=== PATIENT | female | born 1940 | race Caucasian/White ===

== ENCOUNTER → 2018-05-16 08:26 | Outpatient (CLI) | payer MEDICARE, OTHER, SELFPAY ==
--- NOTE | 2018-05-16 | DI.US.S_ITS ---
PROCEDURE: US PELVIC COMPLETE INDICATIONS: ABDOMINAL PAIN, RLQ PAIN TECHNIQUE: Real-time scanning was performed of the pelvic organs, with image documentation. Additional endovaginal scanning was necessary due to incomplete visualization of the adnexal and endometrial structures by transabdominal scanning. COMPARISON: [facility], US, PELVIC COMPLETE, 04/26/2016, 16:57. FINDINGS: Transabdominal scanning: Limited scanning through the kidneys shows mild hydronephrosis. No pathologic free abdominal or pelvic fluid. Endovaginal scanning: Uterus: Uterus is normal in size at 6.1 x 2.7 x 3.7 cm. The endometrium measures 4.0 mm in combined thickness. Mild microcystic changes of the endometrial complex. Ovaries: Calcification nausea right ovary otherwise ovaries are normal measuring 1.9 x 1.4 x 1.0 cm on the right and 1.6 x 0.7 x 0.8 cm on the left. Appendix is not visualized. IMPRESSION: 1. Endometrial complex within normal limits in thickness but does demonstrate associated microcystic changes. Recommend gynecologic consultation and followup ultrasound in 3 months to assess for temporal stability. 2. Small right ovarian calcification otherwise the ovaries are normal. 3. Mild bilateral hydronephrosis present of unclear etiology. Recommend clinical correlation and if indicated CT IVP could be performed. Dictated by: Brandon RUIZ Interpreted: Juan Manuel Anthony MD on 05/16/2018 at 11:03 Approved by: Juan Manuel Anthony M.D. on 05/16/2018 at 14:56
== END ==
PROVIDERS: PCP Physician Assistant Medical; Visit Provider Physician Assistant Medical
DX: R10.31 Right lower quadrant pain (principal); N13.30 Unspecified hydronephrosis; N83.8 Other noninflammatory disorders of ovary, fallopian tube and broad ligament
CPT/HCPCS: 76830; 76856

== ENCOUNTER 2018-06-12 08:15 | Day surgery (SDC) | payer MEDICARE, OTHER, SELFPAY ==
--- NOTE | 2018-06-07 08:27 | PM.PREOP ---
Pre-operative Note Interval Note History & Physical reviewed/Exam performed by Physician: Yes Changes to H&P: No
--- NOTE | 2018-06-11 14:46 | PM.OP.1 ---
Operative Date/Time/Diagnoses Date of procedure: 06/12/18 Time of procedure: 09:45 Procedure & Clinicians Procedure: Preoperative diagnoses: 1. 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 Needs capsular dye and Malyguin ring due to poor dilation and dense cataract. 2. Chronic Clostridium difficele treated with oral Vancomycin for 2 months. 3. Uterine cyst. 4. Cardiomyopathy with valvular insufficiency. Postoperative diagnoses: 1. Complex cataract removed by phacoemulsification with use of Maluguin ring and capsular dye with placement of posterior chamber intraocular lens. Procedure: Complex phacoemulsification with posterior chamber intraocular lens implant. Malyuguin ring and Visudyne used. Surgeon: Coleen Verduzco MD Complications: None Specimen: None Implant: [id number]+20.5 Blood loss: None Anesthesia: Retrobulbar with monitored standby Description of procedure: Patient presents with a complaint of decreased vision due to cataract which is affecting activities of daily living. The patient wants surgery to improve vision. She has had a diagnosis of Clostridium difficile treated for 2 months with tapering doses of vancomycin stable for surgery. She was started on daily vancomycin 1 day before discontinuing daily for the 1st week after surgery and then every other day as directed by her primary care physician. She has no active symptoms The patient was taken to the operating room and given IV sedation. A retrobulbar block consisting of 6 cc of 2% xylocaine without epinephrine mixed half and half with 0.5% Marcaine with 1 cc of hyaluronidase added is placed between the medial and lateral 1/3 of the inferior orbital rim. Lid akinesia is obtain with 1% xylocaine with epinephrine infiltrated along the lid margin. The eye is manually massaged for 30 sec, prepped using Betadine solution, and draped in the usual sterile fashion. Temporal approach was made, a 1 mm side-port incision was made 90? from the proposed clear corneal incision position. Phenylephrine 1.5% mixed with 1% xylocaine 0.2 cc was placed into the anterior chamber. An air bubble followed by Visudyne was placed due to dense cataract and no red reflex to improve visibility. Viscoat followed by Healon was then placed. A 2.6 mm clear incision with a 2.6 mm blade was placed. The pupil was small having poorly dilated was inadequate to perform a capsulorrhexis. Therefore a 7.0 mm Malyguin ring was placed into the anterior chamber after inspection. It was then sequentially placed in all 4 quadrants of the iris allowing for an adequate view. A 360 degree capsulorrhexis style capsulotomy was then performed with a cystitome needle on a [employer]. Hydrodelineation and hydrodissection were performed. The phacoemulsification unit is introduced, and sculpting notice used to groove the central lens. It is then removed in chopping mode. Epi nucleus is removed with epinuclear mode and irrigation aspiration was used to remove the peripheral cortex. The posterior capsule is polished. The intraocular lens is selected, inspected, power confirmed, and placed in the posterior chamber. The pupil was constricted with Miostat.. The wound was stromally hydrated and tested for leaks, there was none and it was left sutureless. Vigamox 0.1 cc was placed into the anterior chamber. Kenalog 0.2 cc was placed in the superior subconjunctival space. A drop of antibiotic and was placed and the eye was patched and shielded. The patient was stable and returned to the recovery room in excellent condition. Dictated by: Coleen Verduzco MD Copy to: [facility] Same procedure as scheduled: Yes
[2018-06-12 09:04] VITALS: BMI 22.4
[2018-06-12] MEDS: PROPARACAINE 0.5% OPHTH SOL 2 DROPS EYE-OP (09:10)
[2018-06-12 09:21] VITALS: BP 171/66; PULSE 66; RESP 15; TEMP 36.3; O2SAT 100
[2018-06-12] MEDS: CATARACT EYE COMPOUND (10 DROPS/SYRINGE) 3 DROPS EYE-OP (09:31)
--- NOTE | 2018-06-12 09:39 | PM.PREOP ---
Pre-operative Note Interval Note History & Physical reviewed/Exam performed by Physician: Yes Changes to H&P: No
[2018-06-12] MEDS: CHONDROIDTIN/SOD HYALURONATE 1.05 ML SYRINGE INTRAOCULA (10:03)
[2018-06-12] MEDS: BALANCED SALT IRRIG SOLN NO.2 15 ML IRR (10:03)
[2018-06-12] MEDS: HYALURONATE SODIUM 10 MG/ML SYRINGE INJ (10:04)
[2018-06-12] MEDS: ERYTHROMYCIN OPHTH 1 GM OINT 1 APPLIC EYE-RIGHT (10:04)
[2018-06-12] MEDS: LIDOCAINE 1% W/EPI INJ 20 ML INJ (10:05)
[2018-06-12] MEDS: MOXIFLOXACIN OPHTH DROPS 3 ML BOTTLE 2 DROPS INJ (10:05)
[2018-06-12] MEDS: PHENYLEPHRINE/LIDOCAINE VIAL (OR) 0.2 ML EYE-OP (10:06)
[2018-06-12] MEDS: OFLOXACIN 0.3% OPHTH 5 ML 2 DROPS EYE-RIGHT ×2 (10:06→10:07)
[2018-06-12] MEDS: TRIAMCINOLONE 50 MG/5 ML VIAL INJ (10:07)
[2018-06-12] MEDS: TRYPAN BLUE 0.5 ML SYRINGE INJ (10:07)
[2018-06-12] MEDS: BALANCED SALT IRRIG SOLN NO.2 500 ML, EPINEPHrine 1 MG IRR (10:08)
[2018-06-12] MEDS: LIDOCAINE 2% 4 ML, BUPIVACAINE 0.5% (PF) 4 ML, HYALURONIDASE 150 UNIT INJ (10:09)
[2018-06-12 10:40] VITALS: BP 129/57; PULSE 58; RESP 20; TEMP 36.1; O2SAT 100
== END 2018-06-12 10:55 | disposition home or self-care (01) ==
LOC: OR 08:18
PROVIDERS: PCP Physician Assistant Medical; Visit Provider Ophthalmology
PROC: (CPT 66982; principal; 2018-06-12 09:45)
DX: H25.11 Age-related nuclear cataract, right eye (principal); I10 Essential (primary) hypertension; I42.9 Cardiomyopathy, unspecified
CPT/HCPCS: 66982; J0171; J2250; J2704; J3010; J3301; J3470

== ENCOUNTER 2018-07-03 09:24 | Day surgery (SDC) | payer MEDICARE, OTHER, SELFPAY ==
--- NOTE | 2018-06-29 12:30 | PM.PREOP ---
Pre-operative Note Interval Note History & Physical reviewed/Exam performed by Physician: Yes Changes to H&P: No H&P completed within 30 days and has changed as indicated here:: Is on daily oral Vancomycin for chronic Clostridium difficile through one week after surgery. then every other day as per her primary care.
--- NOTE | 2018-06-29 12:32 | PM.OP.1 ---
Operative Date/Time/Diagnoses Date of procedure: 07/03/18 Time of procedure: 10:45 Procedure & Clinicians Procedure: Preoperative diagnoses: 1. Left advanced nuclear sclerotic and cortical cataract. 2. Mature or advanced nuclear sclerotic and cortical cataract with moderate dilation increasing surgical risks of complications. 3. Cardiomyopathy. 4. Chronic C. difficile on oral Vancomycin skilled nursing. Postoperative diagnoses: 1. Complex surgery with use of capsular dye, Malyguin ring to enalrge pupil and placement of a posterior chamber intraocular lens implant. Surgeon: Coleen Verduzco MD Complications: none Specimen: None Implant: [id number]+20.5 Blood loss: None Anesthesia: Retrobulbar with monitored standby. Description of procedure: Dictated by: Coleen Verduzco MD Copy to: [facility] Post operative diagnoses: 1. Cataract removed without use of capsular dye with placement of a posterior chamber intraocular lens. Procedure: Phacoemulsification with posterior chamber intraocular lens implant Surgeon: Coleen Verduzco MD Blood loss: None Anesthesia: Retrobulbar with monitored standby Description of procedure: Patient has presented with decreased vision due to cataract which is affecting activities of daily living. The patient wants surgery to improve vision. She has high-risk characteristics of advanced cataract with poor dilation and a very deep set eye. She has controlled chronic Clostridium difficile on daily oral vancomycin which will be continued for surgery. She is currently stable and has medical clearance to continue with cataract surgery. She had her previous cataract surgery right eye 3 weeks ago. The patient was taken to the operating room and given IV sedation. A retrobulbar block consisting of 6 cc of 2% xylocaine without epinephrine mixed half and half with 0.5% Marcaine with 1 cc of hyaluronidase added is placed between the medial and lateral 1/3 of the inferior orbital rim. Lid akinesia is obtain with 1% xylocaine with epinephrine infiltrated along the lid margin. The eye is manually massaged for 30 sec, prepped using Betadine solution, and draped in the usual sterile fashion. Temporal approach was made, a 1 mm side-port incision was performed 90 degrees from the planned corneal wound. Phenylephrine 1.5% mixed with 1% xylocaine 0.2 cc was placed into the anterior chamber. Her pupil is adequate to proceed without any up for capsular dye or a iris ring. Viscoat was used to open the iris as well as coat the endothelium of the cornea. Healon is then placed. She has very high cheek bones and deep-set chamber and loose zonules but at an adequate approach was made with a temporal corneal incision. A 2.6 mm clear incision with a 2.6 mm blade was placed At the 180 degree meridian. A 360 degree capsulorrhexis style capsulotomy was then performed of 5.0 mm maximizing pupillary size, with a cystitome needle on a Healon. Hydrodelineation and hydrodissection were performed. The phacoemulsification unit is introduced, and sculpting used to groove the central lens. It is then removed in chopping mode with extra viscoelastic as needed. Epi nucleus is removed with epinuclear mode and irrigation aspiration was used to remove the peripheral cortex. zonules were loose but intact so the lens was removed in the iris plane. The posterior capsule is polished. The intraocular lens is selected, inspected, power confirmed, and placed in the posterior chamber. The pupil was constricted with Miostat. The wound was stromally hydrated and tested for leaks, there was none and was left sutureless. Vigamox 0.1 cc was placed into the anterior chamber. Kenalog 0.2 cc was placed in the superior subconjunctival space. A drop of antibiotic and was placed and the eye was patched and shielded. The patient was stable and returned to the recovery room in excellent condition. Dictated by: Coleen Verduzco MD Copy to: [facility]
[2018-07-03 09:59] VITALS: BP 132/64; PULSE 70; RESP 16; TEMP 36.3; O2SAT 97; BMI 22.4
[2018-07-03] MEDS: PROPARACAINE 0.5% OPHTH SOL 2 DROPS EYE-OP (10:05)
[2018-07-03] MEDS: CATARACT EYE COMPOUND (10 DROPS/SYRINGE) 3 DROPS EYE-OP (10:07)
[2018-07-03] MEDS: OFLOXACIN 0.3% OPHTH 5 ML 2 DROPS EYE-LEFT (10:55)
[2018-07-03] MEDS: BALANCED SALT IRRIG SOLN NO.2 500 ML, EPINEPHrine 1 MG IRR (10:55)
[2018-07-03] MEDS: TRIAMCINOLONE 50 MG/5 ML VIAL INJ (10:56)
[2018-07-03] MEDS: BALANCED SALT IRRIG SOLN NO.2 15 ML IRR (10:56)
[2018-07-03] MEDS: HYALURONATE SODIUM 10 MG/ML SYRINGE INJ (10:56)
[2018-07-03] MEDS: CARBACHOL 1.5 ML VIAL INJ (10:56)
[2018-07-03] MEDS: CHONDROIDTIN/SOD HYALURONATE 1.05 ML SYRINGE INTRAOCULA (10:56)
[2018-07-03] MEDS: MOXIFLOXACIN OPHTH DROPS 3 ML BOTTLE 2 DROPS INJ (10:57)
[2018-07-03] MEDS: LIDOCAINE 1% W/EPI INJ 20 ML INJ (10:57)
[2018-07-03] MEDS: PHENYLEPHRINE/LIDOCAINE VIAL (OR) 0.2 ML EYE-OP (10:57)
[2018-07-03] MEDS: LIDOCAINE 2% 4 ML, BUPIVACAINE 0.5% (PF) 4 ML, HYALURONIDASE 150 UNIT INJ (10:58)
[2018-07-03] MEDS: ERYTHROMYCIN OPHTH 1 GM OINT 1 APPLIC EYE-LEFT (10:58)
[2018-07-03 11:18] VITALS: BP 137/69; PULSE 58; RESP 15; TEMP 36.3; O2SAT 100
== END 2018-07-03 11:45 | disposition home or self-care (01) ==
LOC: OR 09:26
PROVIDERS: PCP Physician Assistant Medical; Visit Provider Ophthalmology
DX: H25.812 Combined forms of age-related cataract, left eye (principal); I42.9 Cardiomyopathy, unspecified; I10 Essential (primary) hypertension; A04.71 Enterocolitis due to Clostridium difficile, recurrent
CPT/HCPCS: J0171; J2704; J3301; J3470

== ENCOUNTER → 2018-07-08 14:18 | Outpatient (CLI) | payer MEDICARE, OTHER, SELFPAY | PROVIDERS: PCP Physician Assistant Medical; Visit Provider Physician Assistant Medical | DX: M81.0 Age-related osteoporosis without current pathological fracture (principal); Z78.0 Asymptomatic menopausal state; Z85.3 Personal history of malignant neoplasm of breast; Z82.62 Family history of osteoporosis | CPT/HCPCS: 77080 ==

== ENCOUNTER → 2019-11-28 12:44 | Outpatient (CLI) | payer MEDICARE, OTHER, SELFPAY ==
--- NOTE | 2019-11-28 | DI.US.S_ITS ---
PROCEDURE: US PELVIC COMPLETE INDICATIONS: ABNORMAL FINDINGS ON OTHER DIGNOSTICS TECHNIQUE: Real-time scanning was performed of the pelvic organs, with image documentation. Additional endovaginal scanning was necessary due to incomplete visualization of the adnexal and endometrial structures by transabdominal scanning. COMPARISON: [facility], US, US PELVIC COMPLETE, 05/16/2018, 8:56. [facility], US, US PELVIC COMPLETE, 08/14/2018, 16:55. FINDINGS: Transabdominal scanning: Limited scanning through the kidneys shows no hydronephrosis. No pathologic free abdominal or pelvic fluid. Endovaginal scanning: Uterus: Uterus is normal in size at 5.0 x 3.0 x 4.0 cm. The endometrium measures 8.4 mm in combined thickness and microcystic cystic changes.. Ovaries: Left ovary not visualized. Right ovary measures 1.4 x 0.9 x 1.2 cm and there is a 4 mm calcification. IMPRESSION: 1. Thickened and abnormal appearance of the endometrial complex in this postmenopausal female. Endometrial biopsy is recommended. 2. 4 mm right ovarian calcification is unchanged. Dictated by: Brandon Day [facility] Interpreted: Lalo Powell MD on 11/28/2019 at 14:02 Approved by: Lalo Powell M.D. on 11/28/2019 at 14:46
== END ==
PROVIDERS: PCP Internal Medicine; Referring Provider Internal Medicine; Visit Provider Internal Medicine
DX: R93.89 Abnormal findings on diagnostic imaging of other specified body structures (principal); N83.8 Other noninflammatory disorders of ovary, fallopian tube and broad ligament
CPT/HCPCS: 76830; 76856

== ENCOUNTER 2020-10-28 18:56 | Emergency (ER) | payer MEDICARE, OTHER, SELFPAY ==
--- NOTE | 2020-10-28 18:57 | DI.RAD.S_ITS ---
PROCEDURE: XR CHEST 1V INDICATIONS: chest pain TECHNIQUE: One view of the chest was acquired. COMPARISON: [facility], CR, XR CHEST 1 VIEW, 09/17/2020, 16:53. FINDINGS: Surgical changes and devices: None. Lungs and pleura: Lungs are clear. No pleural effusions or pneumothorax. Lungs are hyperexpanded, consistent with COPD. Mediastinum: Mediastinal contours appear normal. Heart size is mildly prominent. Bones and chest wall: No suspicious bony lesions. Overlying soft tissues appear unremarkable. IMPRESSION: No acute pulmonary process. Dictated by: Anastacia Rivera M.D. on 10/28/2020 at 19:26 Approved by: Anastacia Rivera M.D. on 10/28/2020 at 19:27
[2020-10-28 19:00] VITALS: BP 107/63; PULSE 55; RESP 14; TEMP 37.2; O2SAT 99; BMI 21.9
--- NOTE | 2020-10-28 20:09 | ED.CHESTPAIN ---
HPI - Chest Pain General Chief Complaint: Chest Pain Stated Complaint: Chest Pain Time Seen by Provider: 10/28/20 19:40 Source: patient Mode of arrival: EMS Limitations: no limitations History of Present Illness HPI narrative: Patient here for chest pain that occurred this evening. While walking her dog. Took 4 baby aspirin prior to arrival. Currently no chest pain. Patient followed by her vice president of manufacturing Dr. Tran in [place] for hypertrophic cardiomyopathy. Patient was admitted 5 weeks ago to [facility] for new bed stress test and echocardiogram which according to her vice president of manufacturing Dr. Tran unchanged from 1 year ago, the echocardiogram. She did follow-up with him in the office and had changes to metoprolol 50 mg twice a day. She then had another ER visit to [facility] 2 weeks ago for chest pain and ER visit and discharged from the emergency department. She was doing well until today. A lot of stress at home with remodeling. During her walk dog today had non reproducible left-sided chest discomfort. No dyspnea no diaphoresis no syncope. Currently no chest pain. Never had heart catheterization the past. Related Data Home Medications Medication Instructions Recorded Confirmed Probiotic (S.boulardii) 1 cap PO BID 06/12/18 12/17/19 pravastatin 10 mg tablet 10 mg PO DAILY 12/17/19 12/17/19 metoprolol succinate 25 mg 25 mg PO BID 06/21/20 06/21/20 tablet,extended release 24 hr Allergies Allergy/AdvReac Type Severity Reaction Status Date / Time Sulfa (Sulfonamide Allergy Unknown Agitated Verified 10/28/20 19:04 Antibiotics) [SULFA (SULFONAMIDE ANTIBIOTICS)] Review of Systems Review of Systems Narrative: GENERAL: Denies chills, fatigue, malaise, fever, sweats. HEENT: Denies sinus pain, ear pain, sore throat RESPIRATORY: Denies dyspnea, cough CARDIOVASCULAR: Complaint chest pain, denies palpitations GASTROINTESTINAL: Denies nausea, vomiting, abdominal pain : Denies dysuria, frequency, hematuria MUSCULOSKELETAL: denies muscle or bony pain SKIN: Denies rash, skin lesions NEUROLOGIC: Denies weakness, numbness ROS Unobtainable: All systems reviewed & are unremarkable except as noted in HPI and below Patient History Medical History (Updated 10/28/20 @ 21:58 by Domingo Ty MD) Breast cancer C. difficile colitis Cataract Essential tremor Family History (Updated 05/15/16 @ 00:00 by Conversion Provider) Father Stroke Social History household members: spouse Smoking Status: Never smoker Smoking Status: Never smoker alcohol intake frequency: 0-2 drinks per day Substance Use Type: does not use Exam Narrative Exam Narrative: GENERAL: in no distress, not toxic not dyspneic HEAD: Normocephalic. EYES: Pupils equal round No scleral icterus. No injection no discharge ENT: Mucous membranes moist. NECK: Trachea midline. CARDIOVASCULAR: Regular rate and rhythm without murmurs RESPIRATORY: Clear to auscultation. Breath sounds equal bilaterally. No wheezes, rales, or rhonchi. GASTROINTESTINAL: Abdomen soft, non-tender EXTREMITIES: No gross deformities. BACK: No flank tenderness. NEURO: AOx4. SKIN: Warm and dry PSYCH: Not anxious, is cooperative Initial Vital Signs Initial Vital Signs: Vital Signs Temperature 99.0 F 10/28/20 19:00 Pulse Rate 55 L 10/28/20 19:00 Respiratory Rate 14 10/28/20 19:00 Blood Pressure 107/63 10/28/20 19:00 Pulse Oximetry 99 10/28/20 19:00 Course Orders Ordered: ED Orders 10/28/20 18:57 XR chest 1V Stat EKG-12 Lead Stat 10/28/20 19:28 Complete Blood Count AUTO DIFF Stat Comprehensive Metabolic Panel Stat Lipase Stat Troponin & CK Cardiac Panel Stat Reevaluation(s) Reevaluation #1: No chest pain during course of stay. Reviewed results with patient and she agrees for discharge home and follow-up with Dr. Tran. She will resume metoprolol 50 mg twice a day starting tonight. Time: 21:56 Consultations Consultation #1: Spoke with Dr. Varela, cardiology on-call for Dr. Tran. He reviewed patient's medical records electronically and patient is was to be on a Toprol 50 mg twice a day. She did see Dr. Tran and he suggested 25 mg twice a day however after ER visit again at [facility] she was at 37.5 mg twice a day. After that visit Dr. Tran suggested likely going to 50 mg twice a day which she has not done yet.. Patient can be discharged home and follow-up with Dr. Tran. He reviewed patient's echocardiogram and does have hypertrophic cardiomyopathy and due to her own change of metoprolol likely causing the chest pain which is common. Time: 21:56 Vital Signs Vital signs: Vital Signs - 8 hr 10/28/20 19:00 10/28/20 22:31 Temperature 99.0 F Pulse Rate 55 L 63 Respiratory Rate 14 12 Blood Pressure 107/63 155/68 H Pulse Oximetry 99 98 MDM - Chest Pain Differential Diagnosis Differential diagnosis: Likely stable angina, unstable angina pectoris, atypical chest pain and chest pain Lab Data Result diagrams: 10/28/20 19:28 10/28/20 19:28 Labs: Lab Results 10/28/20 10/28/20 Range/Units 19:28 19:28 WBC 7.9 (4.5-11.0) X10^3/uL RBC 3.89 L (4.0-5.2) X10^6/uL Hgb 12.1 (12.0-16.0) g/dL Hct 37.3 (36-46) % MCV 96.0 (80-100) fL MCH 31.2 (26-34) PG MCHC 32.5 (30-36) % RDW 13.7 (11.6-14.8) % Plt Count 238 (150-400) X10^3/uL Neut % (Auto) 69.3 (50-75) % Lymph % (Auto) 18.3 L (25-40) % [place] % (Auto) 7.0 (3-14) % Eos % (Auto) 4.3 H (2-4) % Baso % (Auto) 1.1 (0-2) % Neut # (Auto) 5500 (7184-1522) /uL Lymph # (Auto) 1400 (9007-3397) /uL [place] # (Auto) 600 (0-900) /uL Eos # (Auto) 300 (0-450) /uL Baso # (Auto) 100 (0-100) /uL Sodium 140 (137-145) mmol/L Potassium 4.3 (3.4-5.1) mmol/L Chloride 105 (98-107) mmol/L Carbon Dioxide 27 (22-32) mmol/L BUN 15 (7-17) mg/dL Creatinine 0.84 (0.52-1.04) mg/dL Estimated GFR > 60.0 (>60) mL/min BUN/Creatinine Ratio 17.9 (6-22) Glucose 99 (80-110) mg/dL Calcium 10.4 H (8.4-10.2) mg/dL Total Bilirubin 0.4 (0.2-1.3) mg/dL AST 32 (14-36) IU/L ALT 25 (<35) IU/L Alkaline Phosphatase 93 (38-126) U/L Total Creatine Kinase 45 (30-135) U/L CK-MB (CK-2) TNP CK-MB (CK-2) Rel Index TNP Troponin I < 0.012 (0.01-0.034) ng/mL Total Protein 7.8 (6.3-8.2) g/dL Albumin 4.5 (3.5-5.0) g/dL Globulin 3.3 (1.7-4.1) g/dL Albumin/Globulin Ratio 1.4 (1.0-2.8) Lipase 212 (23-300) U/L Imaging Data Chest x-ray: Radiologist's Impression: [address] [id number] ReportSigned Patient: Maya Lemon FMR#: [id number]: 1Acct:[id number]/Sex: 80 / FDate of Service: 10/28/20Loc: EDAccession Number: [id number] Procedure: XR chest 1V Ordering Provider: Domingo Ty MD PROCEDURE: XR CHEST 1V INDICATIONS: chest pain TECHNIQUE: One view of the chest was acquired. COMPARISON: [facility], , XR CHEST 1 VIEW, 09/17/2020, 16:53. FINDINGS: Surgical changes and devices: None. Lungs and pleura: Lungs are clear. No pleural effusions or pneumothorax. Lungs are hyperexpanded, consistent with COPD. Mediastinum: Mediastinal contours appear normal. Heart size is mildly prominent. Bones and chest wall: No suspicious bony lesions. Overlying soft tissues appear unremarkable. IMPRESSION: No acute pulmonary process. Dictated by: Anastacia Rivera M.D. on 10/28/2020 at 19:26 Approved by: Anastacia Rivera M.D. on 10/28/2020 at 19:27 ECG Data Interpretation: Sinus rhythm rate [address] elevation or depression. Left ventricular hypertrophy. MDM Narrative Medical decision making narrative: Appropriate for discharge home. Chest pain due to hypertrophic cardiomyopathy and patient's change in metoprolol on her own. She will make changes tonight. Discharge Plan Departure Patient Disposition: Home Clinical Impression: Atypical chest pain Instructions: DI for Atypical Chest Pain Activity Restrictions/Additional Instructions: Please resume metoprolol 50 mg twice a day as instructed by your vice president of manufacturing, starting tonight. See your vice president of manufacturing this week for recheck. Return if any questions or concerns. Return if any chest pain or trouble breathing. Prescriptions: No Action metoprolol succinate 25 mg tablet extended release 24 hr 25 mg PO BID RF: 0 pravastatin 10 mg tablet 10 mg PO DAILY RF: 0 Probiotic (S.boulardii) 1 cap PO BID RF: 0 Referrals: Luisito Mayen MD [Primary Care Provider] -
[2020-10-28 20:38] LABS: Add Manual Diff / Slide Review NO; Basophils Absolute Auto 100 /uL (0-100); Basophils Percent Auto 1.1 % (0-2); Eosinophils Absolute Auto 300 /uL (0-450); Eosinophils Percent Auto 4.3 % (2-4); Hematocrit 37.3 % (36-46); Hemoglobin 12.1 g/dL (12.0-16.0); Lymphocytes Absolute Auto 1400 /uL (1100-4500); Lymphocytes Percent Auto 18.3 % (25-40); Mean Corpuscular HGB Conc 32.5 % (30-36); Mean Corpuscular Hemoglobin 31.2 PG (26-34); Monocytes Absolute Auto 600 /uL (0-900); Neutrophils Absolute Auto 5500 /uL (1500-7000); Neutrophils Percent Auto 69.3 % (50-75); Platelet Count 238 X10^3/uL (150-400); Red Blood Cell Count 3.89 X10^6/uL (4.0-5.2); Red Cell Distribution Width 13.7 % (11.6-14.8); White Blood Cell Count 7.9 X10^3/uL (4.5-11.0)
[2020-10-28 20:41] LABS: Alanine Aminotransferase 25 IU/L (<35); Albumin 4.5 g/dL (3.5-5.0); Albumin Globulin Ratio 1.4 (1.0-2.8); Alkaline Phosphatase 93 U/L (38-126); Aspartate Aminotransferase 32 IU/L (14-36); BUN Creatinine Ratio 17.9 (6-22); Bilirubin Total 0.4 mg/dL (0.2-1.3); Blood Urea Nitrogen 15 mg/dL (7-17); Calcium 10.4 mg/dL (8.4-10.2); Carbon Dioxide 27 mmol/L (22-32); Chloride 105 mmol/L (98-107); Creatine Kinase 45 U/L (30-135); Estimated Glomerular Filt Rate > 60.0 mL/min (>60); Globulin 3.3 g/dL (1.7-4.1); Glucose 99 mg/dL (80-110); HEMOLYSIS < 15 (0-50); Lipase 212 U/L (23-300); Potassium 4.3 mmol/L (3.4-5.1); Sodium 140 mmol/L (137-145); Total Protein 7.8 g/dL (6.3-8.2)
[2020-10-28 20:52] LABS: Troponin I < 0.012 ng/mL (0.01-0.034)
[2020-10-28 22:31] VITALS: BP 155/68; PULSE 63; RESP 12; O2SAT 98
== END 2020-10-28 22:33 | disposition home or self-care (01) ==
PROVIDERS: Emergency Provider Emergency Medicine; PCP Family Medicine
DX: R07.89 Other chest pain (principal); I42.2 Other hypertrophic cardiomyopathy
CPT/HCPCS: 71045; 80053; 82550; 83690; 84484; 85025; 93005; 99282; 99284

== ENCOUNTER → 2021-06-10 10:34 | Outpatient (CLI) | payer MEDICARE, OTHER, SELFPAY | PROVIDERS: PCP Family Medicine; Referring Provider Physician Assistant; Visit Provider Nurse Practitioner Family | DX: I73.00 Raynaud's syndrome without gangrene (principal) | CPT/HCPCS: 99203; 99213 ==

== ENCOUNTER → 2022-02-14 15:07 | Outpatient (CLI) | payer MEDICARE, OTHER, SELFPAY ==
--- NOTE | 2022-02-14 15:22 | DI.RAD.S_ITS ---
PROCEDURE: XR WRIST LT MIN 3V INDICATIONS: FRACTURE WITH ROUTINE HEALING TECHNIQUE: 3 views of the wrist were acquired. COMPARISON: None. FINDINGS: Bones: Nonacute distal radius fracture noted. Distal radius fracture is healing in near anatomic alignment. Polyarticular osteoarthritis. Soft tissues: No suspicious soft tissue calcifications. IMPRESSION: Nonacute distal radius fracture. Dictated by: Bobbi Lucero MD, PhD on 02/14/2022 at 16:40 Approved by: Bobbi Lucero MD, PhD on 02/14/2022 at 16:42
== END ==
PROVIDERS: PCP Family Medicine; Referring Provider Internal Medicine; Visit Provider Internal Medicine
DX: S52.022D Displaced fracture of olecranon process without intraarticular extension of left ulna, subsequent encounter for closed fracture with routine healing (principal); S42.202D Unspecified fracture of upper end of left humerus, subsequent encounter for fracture with routine healing; X58.XXXA Exposure to other specified factors, initial encounter
CPT/HCPCS: 73110

== ENCOUNTER → 2022-08-09 08:19 | Outpatient (CLI) | payer MEDICARE, OTHER, SELFPAY ==
[2022-08-09 10:10] LABS: Albumin 4.1 g/dL (3.5-5.0); BUN Creatinine Ratio 18.4 (6-22); Blood Urea Nitrogen 16 mg/dL (7-17); Calcium 9.9 mg/dL (8.4-10.2); Carbon Dioxide 29 mmol/L (22-32); Chloride 104 mmol/L (98-107); Estimated Glomerular Filt Rate > 60 mL/min (>60); Glucose 92 mg/dL (80-110); HEMOLYSIS < 15 (0-50); Phosphorous 3.7 mg/dL (2.8-4.1); Potassium 4.7 mmol/L (3.4-5.1); Sodium 140 mmol/L (137-145)
== END ==
PROVIDERS: PCP Family Medicine; Referring Provider Otolaryngology; Visit Provider Otolaryngology
DX: E21.3 Hyperparathyroidism, unspecified (principal)
CPT/HCPCS: 36415; 80069

== ENCOUNTER → 2023-01-11 10:16 | Outpatient (CLI) | payer MEDICARE, OTHER, SELFPAY ==
--- NOTE | 2023-01-11 | DI.RAD.S_ITS ---
PROCEDURE: XR ELBOW LT MIN 3V INDICATIONS: FRACTURE TECHNIQUE: 3 views of the elbow were acquired. COMPARISON: None. FINDINGS: Bones: Generalized decreased osseous mineralization noted. Olecranon fracture supported by dorsal cortical sideplate and screws. No acute fracture. No hardware failure. Soft tissues: No elbow joint effusion. No suspicious soft tissue calcifications. IMPRESSION: Olecranon fracture with supporting hardware in place. Fracture line is discerned. No displacement Approved by: Rich De Paz M.D. on 01/11/2023 at 16:35
--- NOTE | 2023-01-11 | DI.RAD.S_ITS ---
PROCEDURE: XR SHOULDER LT MIN 2V INDICATIONS: FRACTURE TECHNIQUE: 3 views of the shoulder were acquired. COMPARISON: None. FINDINGS: Bones: Total left shoulder prosthesis in place. Generalized decreased osseous mineralization noted. No fracture or Soft tissues: Atherosclerotic vascular calcification noted in the aortic arch. IMPRESSION: Total left shoulder prosthesis in good position. No fracture. Osteopenia. Approved by: Rich De Paz M.D. on 01/11/2023 at 16:39
== END ==
PROVIDERS: PCP Family Medicine; Referring Provider Registered Nurse; Visit Provider Registered Nurse
DX: S42.292D Other displaced fracture of upper end of left humerus, subsequent encounter for fracture with routine healing (principal); S52.022D Displaced fracture of olecranon process without intraarticular extension of left ulna, subsequent encounter for closed fracture with routine healing; Z96.612 Presence of left artificial shoulder joint
CPT/HCPCS: 73030; 73070

== ENCOUNTER 2024-04-19 17:09 | Emergency (ER) | payer MEDICARE, OTHER, SELFPAY ==
[2024-04-19 17:25] VITALS: BP 150/68; PULSE 72; RESP 18; TEMP 36.8; O2SAT 98; BMI 25.0
--- NOTE | 2024-04-19 17:44 | ED.BACK ---
HPI - Back Pain/Injury <Sherie Lomeli PA-C - Last Filed: 04/19/24 19:01> General Chief Complaint: Back Pain/Injury Stated Complaint: severe back px Time Seen by Provider: 04/19/24 17:35 Source: patient History of Present Illness HPI Narrative: Ms. Lemon is a very pleasant 83-year-old female with a past medical history of R breast Ca s/p lumpectomy and hypertrophic cardiomyopathy who presents to the emergency department for cough and upper back pain x5 days. She is here with her caregiver who contributes to the history. Patient states she was traveling about 1 month ago for [employer] and when she returned home she developed a runny nose and cough. She states that this was a very productive and deep cough that she had for at least 2 weeks. The cough started to improve after 2 weeks however it never fully went away. About 5 days ago she started developing diffuse pain across her upper back which she attributes to muscle pain from all of the aggressive coughing. In addition her runny nose has returned. It has now been almost a month with a cough and 5 days with the upper back pain. She went to urgent care on Sunday who recommended she use warm compress, ibuprofen/Tylenol, topical icy hot. Motrin occasionally helps her symptoms however the pain has continued to get worse since Sunday. She last took Motrin at 4:00 p.m. denies fevers, chills, dysuria, chest pain, SOB, abdominal pain, nausea, vomiting, diarrhea. She does not smoke. Related Data Home Medications Medication Instructions Recorded Confirmed Probiotic (S.boulardii) 1 cap PO BID 06/12/18 12/17/19 pravastatin 10 mg tablet 10 mg PO DAILY 12/17/19 12/17/19 metoprolol succinate 25 mg 25 mg PO BID 06/21/20 06/21/20 tablet,extended release 24 hr Previous Rx's Medication Instructions Recorded azithromycin 250 mg tablet 250 mg PO DAILY 4 days #4 tabs 04/19/24 lidocaine 5 % topical patch 1 patch topical DAILY #15 ea 04/19/24 (Lidoderm) Allergies Allergy/AdvReac Type Severity Reaction Status Date / Time Sulfa (Sulfonamide Allergy Unknown Agitated Verified 10/28/20 19:04 Antibiotics) [SULFA (SULFONAMIDE ANTIBIOTICS)] Review of Systems <Sherie Lomeli PA-C - Last Filed: 04/19/24 19:01> Review of Systems ROS Unobtainable: All systems reviewed & are unremarkable except as noted in HPI and below Patient History <Sherie Lomeli PA-C - Last Filed: 04/19/24 19:01> Medical History Cataract Breast cancer Essential tremor C. difficile colitis Family History Father Stroke Social History household members: spouse Smoking Status: Never smoker Smoking Status: Never smoker alcohol intake frequency: 0-2 drinks per day Exam <Sherie Lomeli PA-C - Last Filed: 04/19/24 19:01> Narrative Exam Narrative: GENERAL: 83 year old patient appears stated age. Well-developed patient, in no acute distress. Sitting in wheelchair. HEAD: Atraumatic. Normocephalic. EYES: Extraocular motions intact. No scleral icterus. No injection or drainage. ENT: Nose without bleeding, purulent drainage. NECK: Trachea midline. Cervical ROM intact. CARDIOVASCULAR: Regular rate and rhythm. Systolic murmur. RESPIRATORY: ?Nonlabored respirations. ?Speaking in clear, full sentences. ?Clear to auscultation. No wheezes. Diminished bilateral lower breath sounds. GASTROINTESTINAL: Abdomen soft, non-tender, nondistended. EXTREMITIES: No edema or joint tenderness. BACK: Subjective pain across the entire superior thoracic back region. No focal pain or tenderness. No midline spinal tenderness. There is a chronic appearing kyphosis deformity of the spine. She does have some scratch trujillo on her lumbar region which she reports are due to itchy dry skin. No CVA tenderness. NEURO: AOx3. ?Clear speech. ?Moves all 4 extremities appropriately. Initial Vital Signs Initial Vital Signs: Vital Signs Temperature 98.2 F 04/19/24 17:25 Pulse Rate 72 04/19/24 17:25 Respiratory Rate 18 04/19/24 17:25 Blood Pressure 150/68 H 04/19/24 17:25 Pulse Oximetry 98 04/19/24 17:25 Oxygen Delivery Method Room Air 04/19/24 17:25 <Michela Lieberman DO - Last Filed: 04/20/24 04:48> Initial Vital Signs Initial Vital Signs: Vital Signs Temperature 98.2 F 04/19/24 17:25 Pulse Rate 72 04/19/24 17:25 Respiratory Rate 18 04/19/24 17:25 Blood Pressure 150/68 H 04/19/24 17:25 Pulse Oximetry 98 04/19/24 17:25 Oxygen Delivery Method Room Air 04/19/24 17:25 Course <MNOIKA Cisse Last Filed: 04/19/24 19:01> Orders Ordered: Discontinued Medications Azithromycin (Azithromycin 250 Mg Tablet) 500 mg PO NOW ONE Stop: 04/19/24 18:49 Last Admin: 04/19/24 18:54 Dose: 500 mg Documented By: HAWA Lidocaine (Lidocaine 5% Patch) 1 each TOP NOW ONE Stop: 04/19/24 18:02 Last Admin: 04/19/24 18:10 Dose: 1 each Documented By: HAWA Vital Signs Vital signs: Vital Signs - 8 hr 04/19/24 17:25 04/19/24 18:49 Temperature 98.2 F Pulse Rate 72 68 Respiratory Rate 18 20 Blood Pressure 150/68 H 146/63 H Pulse Oximetry 98 99 Oxygen Delivery Method Room Air Room Air <DO Pat Matthews Last Filed: 04/20/24 04:48> Orders Ordered: Discontinued Medications Azithromycin (Azithromycin 250 Mg Tablet) 500 mg PO NOW ONE Stop: 04/19/24 18:49 Last Admin: 04/19/24 18:54 Dose: 500 mg Documented By: HAWA Lidocaine (Lidocaine 5% Patch) 1 each TOP NOW ONE Stop: 04/19/24 18:02 Last Admin: 04/19/24 18:10 Dose: 1 each Documented By: HAWA Vital Signs Vital signs: Vital Signs - 8 hr 04/19/24 17:25 04/19/24 18:49 Temperature 98.2 F Pulse Rate 72 68 Respiratory Rate 18 20 Blood Pressure 150/68 H 146/63 H Pulse Oximetry 98 99 Oxygen Delivery Method Room Air Room Air MDM - Back Pain/Injury <MONIKA Cisse Last Filed: 04/19/24 19:01> Medical Records Attestation: I reviewed the patient's medical records. Imaging Data Chest x-ray: Radiologist's Impression: PROCEDURE: XR CHEST 1V INDICATIONS: chest pain TECHNIQUE: One view of the chest was acquired. COMPARISON: [facility], CR, XR CHEST 1 VIEW, 09/17/2020, 16:53. FINDINGS: Surgical changes and devices: None. Lungs and pleura: Lungs are clear. No pleural effusions or pneumothorax. Lungs are hyperexpanded, consistent with COPD. Mediastinum: Mediastinal contours appear normal. Heart size is mildly prominent. Bones and chest wall: No suspicious bony lesions. Overlying soft tissues appear unremarkable. IMPRESSION: No acute pulmonary process. MDM Narrative Medical decision making narrative: 83-year-old female with a past medical history of R breast Ca s/p lumpectomy and hypertrophic cardiomyopathy who presents to the emergency department for cough and upper back pain x5 days. She is here with her caregiver who contributes to the history. Cough has been going on for at least 4 weeks now but it did start to improve 2 weeks ago but never fully resolved. Differential diagnosis includes but is not limited to pneumonia, muscle strain, costochondritis, bronchitis, viral URI, chronic degenerative disc disease, etc. On exam patient is in no acute distress, nontoxic appearing, vital signs appropriate. She has no lower extremity edema or calf tenderness. She is afebrile and not tachycardic. 98% on room air. No pleuritic pain. She has no midline spinal back pain. Abdomen soft and nontender. Lungs without wheezing however she does have diminished breath sounds bilaterally lower lobes. We will proceed with Lidoderm patch for pain as patient has already taken Tylenol and ibuprofen with improvement. We will obtain chest x-ray to rule out underlying pneumonia. Chest x-ray reveals age-appropriate degenerative changes. She does have mild dextroconvex scoliotic curvature in addition to accentuated thoracic kyphosis. There are hyperexpanded lungs without acute cardiopulmonary process. Reviewed chest x-ray from 10/28/2020 which also shows hyperexpanded lungs consistent with COPD. Patient is nonsmoker and has never smoked. Suspect she may have some underlying emphysema. Given the duration of her cough for 4 weeks, now with upper back pain secondary to frequent coughing and possible underlying COPD, I will cover with azithromycin to treat for possible exposure to mycoplasma pneumoniae in addition to COPD exacerbation. Advised patient to follow up with primary care doctor who could subsequently refer her to pulmonary/orthopedics if needed for chronic findings. Patient and her caregiver verbalized understanding of all information and are happy with this plan. Recommended Lidoderm, ibuprofen, Tylenol for pain. Very strict ER return precautions were discussed. Patient is stable for discharge at this time, heart rate 68 O2 saturation 99 on room air. Discharge Plan Departure Patient Disposition: Home Clinical Impression: Pain, upper back URI (upper respiratory infection) Qualifiers: URI type: unspecified URI Qualified Code(s): J06.9 - Acute upper respiratory infection, unspecified Cough Qualifiers: Cough type: subacute Qualified Code(s): R05.2 - Subacute cough Instructions: DI for Thoracic Back Pain Activity Restrictions/Additional Instructions: Dear Ms. Lemon, Today you were evaluated for cough and upper back pain. Chest x-ray reveals no acute pneumonia but it does reveal some chronic findings such as hyperexpanded lungs and degenerative changes of the spine. Because of the duration of your symptoms, we are treating you with an antibiotic called azithromycin for possible walking pneumonia/mycoplasma pneumonia. I have also prescribed you lidocaine patches to use for upper back pain. If your symptoms do not improve with this treatment or if they worsen, please return to the ER. Please take Ibuprofen (Motrin/Advil) or Acetaminophen (Tylenol) for pain. These are available over the counter. You may take Ibuprofen 400 mg every 6 hours with food for pain. You may also take Acetaminophen 650 mg every 4-6 hours for pain. Do not exceed 3000 mg of Tylenol a day as this can cause liver damage. Do not drink alcohol with either of these medications. Please follow up with your primary care doctor within the next 2-3 days for ER follow-up. (If you do not have a PCP you can call [phone]. ?to schedule an appointment with an [facility] Primary Care Provider) IF YOU DEVELOP ANY NEW OR WORSENING SYMPTOMS, RETURN TO THE ER! Please read the attached instructions, they highlight more specific treatments and interventions for you at home. Thank you for letting me participate in your care, Sherie Lomeli PA-C Prescriptions: New azithromycin 250 mg tablet 250 mg PO DAILY 4 Days Qty: 4 0RF Rx Instructions: start on 04/20/24 lidocaine [Lidoderm] 5 % adhesive patch,medicated 1 patch topical DAILY Qty: 15 0RF Rx Instructions: leave on most painful area for up to 12 hrs No Action metoprolol succinate 25 mg tablet extended release 24 hr 25 mg PO BID pravastatin 10 mg tablet 10 mg PO DAILY Probiotic (S.boulardii) 1 cap PO BID Referrals: Corey Soto DO [Primary Care Provider] - Stand Alone Forms: Patient Portal/API/Survey ED Sign-out <Michela Lieberman DO - Last Filed: 04/20/24 04:48> Cosign ED Attending Cosignature Attestation: I was available for consultation.
--- NOTE | 2024-04-19 17:45 | DI.RAD.S_ITS ---
PROCEDURE: XR CHEST 2V INDICATIONS: back pain, cough TECHNIQUE: 2 views of the chest were acquired. COMPARISON: [facility], CR, XR CHEST 1 VIEW, 01/02/2022, 3:22. [facility], CR, XR CHEST 1V, 10/28/2020, 19:12. FINDINGS: Surgical changes and devices: There is left shoulder arthroplasty hardware. Right breast postoperative clips can be seen. Lungs and pleura: Lungs are clear, yet hyperexpanded. No pleural effusions or pneumothorax. Mediastinum: Mediastinal contours are normal. Heart size is normal. Atherosclerotic calcification of the aortic arch is noted. Calcification of the mitral valve annulus is also seen. Bones and chest wall: No suspicious bony abnormalities. Age-appropriate bony degenerative changes are seen. Mild dextroconvex scoliotic curvature is seen. Accentuated thoracic kyphosis is seen. Soft tissues appear unremarkable. IMPRESSION: Hyperexpanded lungs, without an acute cardiopulmonary process identified. Postoperative and degenerative changes are seen. Dictated by: Edu Rodriguez M.D. on 04/19/2024 at 17:28 Approved by: Edu Rodriguez M.D. on 04/19/2024 at 17:29
[2024-04-19] MEDS: LIDOCAINE 5% PATCH 1 EACH TOP (18:10)
[2024-04-19 18:49] VITALS: BP 146/63; PULSE 68; RESP 20; O2SAT 99
[2024-04-19] MEDS: AZITHROMYCIN 250 MG TABLET 500 MG PO (18:54)
== END 2024-04-19 19:08 | disposition home or self-care (01) ==
PROVIDERS: Emergency Provider Physician Assistant; PCP Family Medicine
DX: J06.9 Acute upper respiratory infection, unspecified (principal); R05.2 Subacute cough; M54.89 Other dorsalgia
CPT/HCPCS: 71046; 99283

== ENCOUNTER → 2024-10-23 09:38 | Outpatient (CLI) | payer MEDICARE, OTHER, SELFPAY ==
--- NOTE | 2024-10-23 09:39 | DI.MG.S_ITS ---
MM diagnostic mammo BI: 10/23/2024. BI-RADS: 2 CLINICAL: 84-year old female for bilateral diagnostic mammogram. No Tyrer- Cuzick risk score calculation due to the patient's personal history of breast cancer. Patient reports a history of right breast carcinoma diagnosed at age 60. Status-post right lumpectomy with radiation therapy and hormonal therapy. No first-degree family history of breast cancer. The patient reports non-focal pain (1 year) in the right breast. The patient had a prior right breast biopsy. PRIOR EXAMS Outside exams dated 12/19/2023, 12/15/2022, 09/20/2018, and 09/18/2017. MAMMOGRAPHY TECHNIQUE: 2D and 3D (tomosynthesis) digital mammographic views obtained, with additional images as needed for full coverage. Current study was also evaluated with a Computer Aided Detection (CAD) system. DENSITY C. The breasts are heterogeneously dense, which may obscure small masses. MAMMOGRAPHY FINDINGS Right: Lumpectomy changes present. There are no suspicious masses, calcifications, or other findings in the breast. Of note, because the patient's symptoms are non-focal, no skin marker was placed. Left: No suspicious mass, asymmetry, microcalcification, or other abnormality seen. IMPRESSION: Right * No evidence of malignancy with benign findings. * Lumpectomy changes noted, right Left * No evidence of malignancy. RECOMMENDATIONS Bilateral * Annual screening mammography. COMMENTS: Findings and recommendations were conveyed to the patient during today's evaluation. OVERALL ASSESSMENT CATEGORY BI-RADS-2: Benign. The [employer] recommends annual screening mammography beginning at age 40 for women with average risk of breast cancer. ELECTRONICALLY SIGNED: Liza Leggett M.D. on 10/23/2024 at 10:36:53 AM PT Interpreting Station ID: [id number]
== END ==
PROVIDERS: PCP Family Medicine; Referring Provider Family Medicine; Visit Provider Family Medicine
DX: N64.4 Mastodynia (principal); R92.333 Mammographic heterogeneous density, bilateral breasts; Z85.3 Personal history of malignant neoplasm of breast
CPT/HCPCS: 77066; G0279